=== PATIENT | female | born 1955 | race Caucasian/White ===

== ENCOUNTER 2017-12-15 15:25 | Inpatient (IN) | payer BC, OTHER ==
--- NOTE | 2017-12-15 18:04 | RAD ---
HISTORY: Left knee pain after injury COMPARISONS: None VIEWS: 2, Frontal and lateral views of the left knee FINDINGS: Evaluation is limited by positioning. BONE DENSITY: Normal. BONES: There is a depressed fracture of the lateral tibial plateau. JOINTS: There is lipohemarthrosis. ALIGNMENT: There is no dislocation. SOFT TISSUES: Unremarkable. OTHER FINDINGS: None. IMPRESSION: LATERAL TIBIAL PLATEAU FRACTURE
[2017-12-15] MEDS ORDERED: oxyCODONE/Acetamin 5/325 MG* TAB PO ONE ×2 (21:26)
[2017-12-15] MEDS ORDERED: Ondansetron INJ* 2 MG/ML VIAL IV PRN (23:44)
[2017-12-15] MEDS ORDERED: fentaNYL* 50 MCG/ML 2 ML VIAL (100 MCG VIAL) IV SLOW PU PRN (23:44)
[2017-12-15] MEDS ORDERED: Acetaminophen TAB* 325 MG PO PRN (23:44)
[2017-12-15] MEDS ORDERED: CMCS: Melatonin (NF) 3 MG TAB PO PRN (23:44)
[2017-12-15] MEDS ORDERED: traMADol TAB* 50 MG PO PRN (23:44)
--- NOTE | 2017-12-15 23:48 | HP ---
H&P (Free Text) History and Physical: PCP: Date/Time: CC: HPI: PMedHx PSurgHx SocHx: FamHx: ROS: as above, otherwise reviewed and all were negative vitals: Constitutional: NAD, normally developed, well-nourished HEENM: atraumatic; sclera/conjunctiva: ; hearing: ; oropharynx: Neck: soft tissue: ; thyroid: Pulmonary: clear to auscultation bilaterally, good aeration, no accessory muscle use CV: RR/RR, normal S1S2, no carotid bruit, no jugular venous distention, 2+ B DP/ PT, no edema Abdominal: soft, non-distended, non-tender, no rebound/guarding/rigidity, normoactive bowel sounds, no hepatosplenomegaly or masses, no costovertebral angle tenderness Musculoskeletal: general: ; gait: Integumental: Psychiatric orientation: affect: mood: eye contact: content: memory: responses: insight: Testing: ECG, personally reviewed: CXR, personally reviewed: Impression: DIAGNOSIS & PLAN Primary Secondary Admission Rational: DVTp: Code Status: HCP:
--- NOTE | 2017-12-15 23:49 | HP ---
H&P (Free Text) History and Physical: PCP: Mark Barone MD Date/Time: 12/15/2017 2340 CC: L leg pain after being charged by a sow HPI: Mrs Burrows is a very pleasant 62YO super morbidly obese female without medical diagnoses, no history of surgery, and on no chronic medications who was loading pigs into a trailer when the sow in front of her turned around and decided not to board. She was unable to get out of the way and was struck in the LLE with immediate onset of severe pain and an inability to bear weight for which she presents. XRY has confirmed a L tibial plateau fracture. Her pain has been unable to be adequately controlled with medications and a L knee immobilizer in order to safely discharge. 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 Mrs Burrows reports seeing her PCP ~1 week ago and receiving a clean bill of health. 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; full code status FamHx: Mother: alive at 84, early dementia; Father: alive at 87, CVA, valve replacement & needing another, Waldenstrom's, small cell lung CA ROS: as above, otherwise reviewed and all were negative vitals: Vital Signs Temp 38.1 C 12/16/17 01:27 Pulse 87 12/16/17 01:27 Resp 16 12/16/17 01:27 BP 158/69 12/16/17 01:27 Pulse Ox 96 12/16/17 01:27 Intake & Output 12/15/17 12/15/17 12/16/17 11:59 23:59 11:59 Weight 144.242 kg Constitutional: NAD, normally developed, super morbidly obese white female HEENM: atraumatic; sclera/conjunctiva: anicteric/clear; hearing: clinically intact; oropharynx: clear, mucosa moist Neck: soft tissue: non-tender; thyroid: normal Pulmonary: clear to auscultation bilaterally, good aeration, no accessory muscle use CV: RR/RR, normal S1S2, no carotid bruit, no jugular venous distention, 2+ B DP/ PT, no edema, L foot capillary refill <2 seconds Abdominal: soft, non-distended, non-tender, no rebound/guarding/rigidity, normoactive bowel sounds, no hepatosplenomegaly or masses, no costovertebral angle tenderness Musculoskeletal: general: L knee immobilizer; gait: currently non-ambulatory 2nd LLE pain Integumental: normal appearance and texture of exposed skin Psychiatric orientation: AA&O to PPS affect: calm mood: cooperative, pleasant eye contact: good content: reliable responses: timely insight: good Testing: Lab Results 12/16/17 12/16/17 12/16/17 Range/Units 00:53 00:53 00:53 WBC 10.9 H (3.5-10.8) 10^3/ul RBC 4.51 (4.0-5.4) 10^6/ul Hgb 13.2 (12.0-16.0) g/dl Hct 39 (35-47) % MCV 87 (80-97) fL MCH 29 (27-31) pg MCHC 34 (31-36) g/dl RDW 14 (10.5-15) % Plt Count 151 (150-450) 10^3/ul MPV 9 (7.4-10.4) um3 Neut % (Auto) 78.6 (38-83) % Lymph % (Auto) 14.1 L (25-47) % Wake % (Auto) 6.4 (1-9) % Eos % (Auto) 0.2 (0-6) % Baso % (Auto) 0.7 (0-2) % Absolute Neuts (auto) 8.6 H (1.5-7.7) 10^3/ul Absolute Lymphs (auto) 1.5 (1.0-4.8) 10^3/ul Absolute Monos (auto) 0.7 (0-0.8) 10^3/ul Absolute Eos (auto) 0 (0-0.6) 10^3/ul Absolute Basos (auto) 0.1 (0-0.2) 10^3/ul Absolute Nucleated RBC 0 10^3/ul Nucleated RBC % 0 INR (Anticoag Therapy) 0.90 (0.77-1.02) APTT 28.2 (26.0-36.3) seconds BUN 15 (6-24) mg/dL Creatinine 0.68 (0.51-0.95) mg/dL Est GFR ( Amer) 112.0 (>60) Est GFR (Non-Af Amer) 87.1 (>60) CXR, personally reviewed: IMPRESSION: LATERAL TIBIAL PLATEAU FRACTURE Impression: 62F with no medical issues presents with traumatic L lateral tibial plateau fracture DIAGNOSIS & PLAN Primary traumatic L lateral tibial plateau fracture : pain control : Malick Valdez MD orthopedic surgery consulted by ED : As there are no acute or chronic medical conditions nor chronic medications, Mrs Burrows has been admitted to the orthopedic service and the Hospitalist service will sign off. Should any acute medical issues arise, please consult. Secondary super morbid obesity : no acute issues Admission Rational: observation for orthopedic management of a L lateral tibial plateau FX DVTp: heparin SQ Code Status: full HCP:
[2017-12-16 01:03] LABS: ABS Basophils 0.1 10^3/ul (0-0.2); ABS Eosinophils 0 10^3/ul (0-0.6); ABS Lymphocytes 1.5 10^3/ul (1.0-4.8); ABS Monocytes 0.7 10^3/ul (0-0.8); ABS Neutrophils 8.6 10^3/ul (1.5-7.7); ABS Nucleated RBC 0 10^3/ul; Eosinophil % 0.2 % (0-6); Hematocrit 39 % (35-47); Hemoglobin 13.2 g/dl (12.0-16.0); Lymphocyte % 14.1 % (25-47); Mean Corpuscular HGB Conc 34 g/dl (31-36); Mean Corpuscular Hemoglobin 29 pg (27-31); Mean Corpuscular Volume 87 fL (80-97); Mean Platelet Volume 9 um3 (7.4-10.4); Nucleated Red Blood Cells % 0; Platelet Count 151 10^3/ul (150-450); Red Blood Count 4.51 10^6/ul (4.0-5.4); Red Cell Distribution Width 14 % (10.5-15); White Blood Count 10.9 10^3/ul (3.5-10.8)
[2017-12-16 01:17] LABS: EGFR Non-African American 87.1 (>60)
[2017-12-16 01:18] LABS: INR 0.9 (0.77-1.02)
[2017-12-16] MEDS: oxyCODONE TAB* 5 MG TAB PO PRN ×2 (04:04→08:11)
[2017-12-16] MEDS: Heparin VIAL(*) 5000 UNITS/ML VIAL (FIVE THOUSAND) SUBCUT SCH ×3 (05:50→21:18)
[2017-12-16] MEDS: Omeprazole CAP* 20 MG PO SCH (05:53)
[2017-12-16] MEDS: Docusate CAP* 100 MG PO SCH ×2 (08:11→20:24)
[2017-12-16] MEDS ORDERED: Influenza VAC *QUAD* 2017-18* 0.5 ML SYRINGE IM ONE (09:00)
--- NOTE | 2017-12-16 11:26 | RAD ---
INDICATION: Tibial plateau fracture. Femoral pain COMPARISON: Left knee same date TECHNIQUE: Multiple views were obtained. FINDINGS: There is no acute femoral fracture. There is osteophyte change about the knee with acute lateral tibial plateau fracture as described in a separate report. IMPRESSION: NO ACUTE FEMORAL FRACTURE.
[2017-12-16] MEDS ORDERED: Morphine INJ* 2 MG/ML 1 ML SYRINGE (TWO MG - NEW SYRINGE VERSION) ONE (11:35)
[2017-12-16] MEDS ORDERED: Morphine INJ* 4 MG/ML 1 ML CARPUJECT IV PRN (11:40)
[2017-12-16] MEDS ORDERED: Morphine INJ* 2 MG/ML 1 ML SYRINGE (TWO MG - NEW SYRINGE VERSION) IV PRN (11:40)
[2017-12-16] MEDS: oxyCODONE/Acetamin 5/325 MG* TAB PO PRN ×3 (12:13→20:23)
--- NOTE | 2017-12-16 12:21 | ED ---
Lidia Smith Julia, scribed for Ilir Barlow MD on 12/15/17 at 1904 . Lower Extremity - HPI Summary HPI Summary: This patient is a 62 year old F presenting to [facility] with a chief complaint of L knee pain since 15:15 immediately after a pig ran into her L knee while trying to get it onto a truck. The patient rates the pain 8/10 in severity. Symptoms aggravated by bearing weight and movement. Symptoms alleviated by nothing. - History of Current Complaint Chief Complaint: EDExtremityLower Stated Complaint: WEAKNESS Time Seen by Provider: 12/15/17 18:38 Hx Obtained From: Patient Mechanism Of Injury: Direct Blow Onset of Pain: Immediate Onset/Duration: Still Present Pain Intensity: 8 Pain Scale Used: 0-10 Numeric Timing: Constant Location: Is Discrete @ - L knee Associated Signs And Symptoms: Positive: Knee Pain Aggravating Factor(s): Movement, Weight Bearing - Allergies/Home Medications Allergies/Adverse Reactions: Allergies Allergy/AdvReac Type Severity Reaction Status Date / Time Albuterol Allergy Edema Verified 01/30/17 11:27 PMH/Surg Hx/FS Hx/Imm Hx Opthamlomology History: Denies: Hx Legally Blind EENT History: Denies: Hx Deafness Infectious Disease History: No Infectious Disease History: Denies: Traveled Outside the [place] in Last 30 Days - Family History Known Family History: Positive: Cardiac Disease, Diabetes - paternal, Other - skin CA - Social History Alcohol Use: None Substance Use Type: Reports: None Smoking Status (MU): Unknown if Ever Smoked Review of Systems Negative: Fever Positive: Other - L knee pain All Other Systems Reviewed And Are Negative: Yes Physical Exam - Summary Physical Exam Summary: Appearance: The patient is well-nourished in no acute distress and in no acute pain. Patient is morbidly obese. Skin: The skin is warm and dry and skin color reflects adequate perfusion. HEENT: The head is normocephalic and atraumatic. The pupils are equal and reactive. The conjunctivae are clear and without drainage. Nares are patent and without drainage. Mouth reveals moist mucous membranes and the throat is without erythema and exudate. The external ears are intact. The ear canals are patent and without drainage. The tympanic membranes are intact. Neck: the neck is supple with full range of motion and non-tender. There are no carotid bruits. There is no neck vein distension. Respiratory: Chest is non-tender. Lungs are clear to auscultation and breath sounds are symmetrical and equal. Cardiovascular: Heart is regular rate and rhythm. There is no murmur or rub auscultated. There is no peripheral edema and pulses are symmetrical and equal. Abdomen: The abdomen is soft and non-tender. There are normal bowel sounds heard in all four quadrants and there is no organomegaly palpated. Musculoskeletal: There is no back tenderness noted. L knee is tender to any ROM. There is good capillary refill. There is no peripheral edema or calf tenderness elicited. LLE neurovascular integrity is intact Neurological: Patient is alert and oriented to person, place and time. The patient has symmetrical motor strength in all four extremities. Cranial nerves are grossly intact. Deep tendon reflexes are symmetrical and equal in all four extremities. Psychiatric: The patient has an appropriate affect and does not exhibit any anxiety or depression. Triage Information Reviewed: Yes Vital Signs On Initial Exam: Initial Vitals Temp Pulse Resp BP Pulse Ox 97.5 F 82 16 162/76 97 12/15/17 15:39 12/15/17 15:39 12/15/17 15:39 12/15/17 15:39 12/15/17 15:39 Vital Signs Reviewed: Yes Diagnostics - Vital Signs Vital Signs Temp Pulse Resp BP Pulse Ox 12/15/17 17:44 98.0 F 76 16 161/65 99 12/15/17 15:39 97.5 F 82 16 162/76 97 - Laboratory Result Diagrams: 12/16/17 00:53 12/16/17 00:53 Lab Statement: Any lab studies that have been ordered have been reviewed, and results considered in the medical decision making process. - Radiology L knee XR Radiology Interpretation Completed By: Radiologist - LATERAL TIBIAL PLATEAU FRACTURE. ED Physician has reviewed this report. Lower Extremity Course/Dx - Course Course Of Treatment: Ms. Burrows was found to have sustained a lateral tibial plateau fracture. I spoke with Dr. Valdez who felt that immobilization, pain control F/U in the office tomorrow would suffice. We were able to get an immobilizer on her but even with pain medications she was not able to ambulate non weight bearing with crutches or a walker. She is morbidly obese and Dr. Portillo is admitting her for Dr. Valdez. - Diagnoses Provider Diagnoses: Tibial plateau fracture, left - Physician Notifications Discussed Care Of Patient With: Luz Valdez Time Discussed With Above Provider: 19:55 Instructed by Provider To: Other - patient should use immobilizer and follow up in office tomorrow Discharge - Discharge Plan Condition: Stable Disposition: HOME The documentation as recorded by the Lidia mooney Julia accurately reflects the service I personally performed and the decisions made by me, Ilir Barlow MD.
--- NOTE | 2017-12-16 12:43 | RAD ---
INDICATION: Traumatic tibial plateau fracture left knee. COMPARISON: Comparison is made with a prior x-ray study of the left knee from December 15, 2017. TECHNIQUE: Contiguous axial sections were obtained of the left knee. Images were reconstructed in the sagittal and coronal planes. FINDINGS: There is a comminuted depressed fracture of the anterior lateral tibial plateau. The fracture fragments are depressed up to 1.3 cm. The fracture extends through the region of the tibial spines. No other fractures are seen. There is a large lipohemarthrosis present. Incidental note is made of moderate osteoarthritic change in the medial compartment. IMPRESSION: 1. DEPRESSED FRACTURE OF THE LATERAL TIBIAL PLATEAU. 2. LIPOHEMARTHROSIS.
--- NOTE | 2017-12-16 19:56 | CONS ---
ORTHOPEDIC CONSULTATION NOTE: DATE OF CONSULT: 12/16/17 Thank you for this orthopedic consultation. CHIEF COMPLAINT: Left knee pain. HISTORY OF PRESENT ILLNESS: Ms. Burrwos is a 62-year-old morbidly obese female who was hit by a pig on 12/15/17, injuring her left knee. She had immediate 10/ 10 pain in the left leg. She is unable to bear weight without pain. She came to [facility] and was diagnosed with a lateral tibial plateau fracture. My recommendation was for the patient to follow up as an outpatient in clinic to discuss operative versus nonoperative treatment plan. The patient was unable to leave the emergency room due to inability to ambulate and inadequate pain control. She has been admitted for these things. I am consulting on her fracture care. PAST MEDICAL HISTORY: Basal cell cancer, morbid obesity. PAST SURGICAL HISTORY: None. FAMILY HISTORY: Maternal - dementia. Paternal - CVA and cardiac valve disorder , lung cancer. SOCIAL HISTORY: The patient lives with her . 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 Normally an independent ambulator. Minimal alcohol use. No tobacco or recreational drug use. REVIEW OF SYSTEMS: Fourteen systems were reviewed with the patient. Positive for left femur pain, left knee pain. Negative for fevers, chills, chest pain, shortness of breath, nausea, vomiting, headache or dizziness. Otherwise, the patient reports review of systems is negative or not relevant. PHYSICAL EXAMINATION: Vitals: Temperature 99.9, heart rate 80, blood pressure 140/47. General: The patient is a morbidly obese female, in no apparent distress, alert and oriented x3, pleasant mood and appropriate affect. Gait is not assessed. HEENT: Atraumatic, normocephalic. Pupils equal and reactive to light. Chest: Unlabored breathing. Bilateral upper extremities, no tenderness to palpation. Forward flexion to 120 degrees, no instability, 5/5 yarn comber strength , 2+ palpable radial pulses. Right lower extremity: The patient's skin is intact. No abrasions or open wounds. She can flex the hip and knee without pain. Distally neurovascularly intact. Left lower extremity, the patient has swelling in the distal thigh with palpable hematoma along the distal quadriceps region. Tenderness to palpation and swelling along the knee and proximal tibia. It is hard to assess the swelling due to the patient's morbid obesity. She has a soft calf that is compressible with minimal pain. Any flexion of the knee causes extreme pain. Distally, she has 5/5 ankle dorsiflexion and plantarflexion. Full sensation to light touch in all nerve distributions and 2 + palpable DP pulse. DIAGNOSTIC STUDIES/LAB DATA: White blood cell 10.9, hematocrit 39, platelets 151,000. INR is 0.9. Chemistry: BUN and creatinine 15 and 0.68. Radiographs: There are knee films that show a depression type fracture of the lateral tibial plateau. No additional films. No films of the femur. ASSESSMENT AND PLAN: Ms. Burrows is a 62-year-old female, who had an injury from a pig yesterday with resulting left displaced lateral tibial plateau fracture, likely depression type. The patient has a significant hematoma in the left distal thigh and I will order some femur films. I will also order a CT scan for better visualization of this tibial plateau fracture. The patient and I had previously discussed operative and nonoperative treatment options. She would like to avoid surgery if at all possible. After reviewing just the plain films, I feel she may need surgical intervention. The patient should be nonweightbearing, left lower extremity. She should have physical therapy work with her on ambulation today with rolling walker. If her pain is controlled, then she is able to be discharged to home. She should follow up as an outpatient this week to further discuss her CT and treatment options. She should have ice to the knee at all times. She should have elevation of that leg. She should have the knee immobilizer on when out of bed. [id number]/[facility] #: [id number] CHRISTINA
--- NOTE | 2017-12-17 01:45 | CONS ---
CONSULTATION REPORT: DATE OF CONSULT: 12/16/17 REASON FOR CONSULTATION: Left tibial plateau fracture. 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 yesterday, 12/15/17, sustained a left knee injury on her farm. The patient was loading pigs into a trailer when the sow in front of her turned around and moved towards her. The patient reports that she was struck in the left knee. The patient acknowledged that she was likely hit about the lateral aspect of the knee when I asked regarding this. The patient did not fall and hit the ground, but she had an immediate onset of severe pain and inability to weight bear. The patient's eventually was able to bring her to [facility] Emergency Department last night, where x-rays diagnosed her with a left knee lateral tibial plateau fracture, displaced, depression type. The patient was given the diagnosis and told that treatment could be elective, as an outpatient. However, for functional reasons and those of pain control, the patient was not able to go home from the emergency department. She was, therefore, admitted to the hospitalist service for pain control and functional support. The patient describes no left knee pain history prior to this accident yesterday. The patient reports no other injury sustained with that accident yesterday. The patient states that she is comfortable and not in pain as long as she does not move at all the left lower extremity. If that left lower extremity moves, she has significant left knee pain. PAST MEDICAL HISTORY: Obesity with BMI of 54.6. PAST SURGICAL HISTORY: Excision of basal cell carcinoma from chin. MEDICATIONS: None. ALLERGIES: ALBUTEROL (lip swelling). 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 The patient reports a remote history of smoking minimally when she was much younger in the distant past. The patient drinks minimally, 1 to 2 glasses of wine twice monthly. No recreational drugs. Lives with her . REVIEW OF SYSTEMS: No headache, nausea or vomiting, chest pain, heart palpitations, shortness of breath. No abdominal pain. No numbness and tingling of left lower extremity. No other joint pain. PHYSICAL EXAM: Vital Signs: At 3:35 p.m. on 12/16/17: Temperature 98.2 degrees Fahrenheit, pulse 71, blood pressure 146/66, respiratory rate 16, O2 sat 95% on room air. No acute distress, alert and oriented, appropriate mood and affect, appropriate dress and hygiene, well coordinated bilateral upper and lower extremities. I did not assess gait as the patient was sitting with her legs up in a chair in her hospital room. Knee immobilizer in place about the left lower extremity. No significant soft tissue swelling about the left knee, although difficult to discern level of soft tissue swelling given the obesity about the knee. No ecchymosis. No skin defects. Positive tenderness to palpation of the lateral tibial plateau. Neurovascularly intact distally. The skin of the lateral lower leg wrinkled nicely as well as the skin about the lateral knee. DIAGNOSTIC STUDIES/LAB DATA: On 12/16/17, today, white blood cell count 10.9, hematocrit 39, INR 0.90, creatinine 0.68. Neutrophil count 78.6% with a white count of 10.9. Imaging: I reviewed the CT scan of the left knee from today, 12/16/17 of the left knee. It reveals a lateral tibial plateau fracture. The amount of depression is significant. I measured it to be approximately 10 mm. Axillary slices appeared indicate that it is more the anterior than the posterior aspect of the lateral tibial plateau that is affected. Radiologist did not reference a split fracture. However, to my eye, I see a split component to the fracture, with the fracture line exceeding approximately 3.8 cm distal to the joint line. There are visible osteophytes in all 3 compartments of the knee, so certainly some level of arthritic change is present. X-rays were also reviewed from 12/15/17. They show clear depression of the lateral tibial plateau of approximately 1 cm. ASSESSMENT: Lateral tibial plateau fracture, displaced, Schatzker type II. PLAN: 1. The patient's potentially complicating factors include her morbid obesity and her preexisting knee osteoarthritis. 2. I mapped out the fracture in a diagram to the patient and her family. We discussed nonoperative and operative treatments for this injury. Given the extensive depression, despite the patient's preexisting arthritis, for the stability of the knee and to slow osteoarthritic change, I recommended open reduction internal fixation surgery. 3. I detailed how I typically use cancellous bone allograft for this procedure. The patient understood. 4. I told the patient that generally soft tissue swelling accompanies this injury such that surgery is performed within 24 hours or at a week or week and a half post- injury. This is not always however the case. The patient has nice wrinkling of her skin currently. I told her that based on OR availability , I might be able to do the case in the next several days, perhaps on Saturday , 12/18/17, so that the patient would not have to go to a rehabilitation facility prior to surgery. She does not feel comfortable going home with her knee as it is currently. It is both functionally and pain bui. 5. I told the patient that she must have that knee and lower extremity elevated at all times under 3 pillows and that she should have ice packs on the knee. This is to minimize soft tissue swelling to make surgery in next several days feasible to prevent any difficulties with infection or wound healing in the future perioperatively. 6. Because of the elevated slightly white count and the left shift of neutrophils, I am going to place an order for a urinalysis and culture. 7. I will request that hospitalist perform a preoperative optimization, clearance on the patient to make sure no additional testing is required such as a cardiac evaluation. [id number]/[facility] #: [id number] CHRISTINA
[2017-12-17] MEDS: Omeprazole CAP* 20 MG PO SCH (06:27)
[2017-12-17] MEDS: oxyCODONE/Acetamin 5/325 MG* TAB PO PRN ×5 (06:28→23:46)
[2017-12-17] MEDS: Heparin VIAL(*) 5000 UNITS/ML VIAL (FIVE THOUSAND) SUBCUT SCH ×3 (06:28→20:59)
[2017-12-17] MEDS: Docusate CAP* 100 MG PO SCH ×2 (08:05→20:59)
[2017-12-17 10:56] LABS: Urine Appearance Clear; Urine Blood 1+ (Negative); Urine Color Straw; Urine Ketones Negative (Negative); Urine Protein Negative (Negative); Urine Specific Gravity 1.005 (1.010-1.030); Urine Urobilinogen Negative (Negative)
--- NOTE | 2017-12-17 11:03 | PN ---
Progress Note - Progress Note Date of Service: 12/17/17 SOAP: Subjective: []Patient seen at bedside. Her pain is well controlled at rest, aggravated by movement. Denies dizziness, CP, SOB. Objective: []General: Well appearing, NAD RLE: Immobilizer in place. Leg propped on pillows, ice bags in place. DF/PF intact. 2+ DP. Sensation intact distally. Brisk capillary refill distally. Vital Signs Temp 98.0 F 12/17/17 07:43 Pulse 72 12/17/17 07:43 Resp 16 12/17/17 09:05 BP 152/50 12/17/17 07:43 Pulse Ox 93 12/17/17 07:43 Intake & Output 12/16/17 12/17/17 12/17/17 18:59 06:59 18:59 Intake Total 1500 Output Total 800 400 Balance -800 1100 Intake: Oral 1500 Output: Urine 800 400 Other: # Bowel Movements 0 Laboratory Last Values WBC 10.9 10^3/ul (3.5-10.8) H 12/16/17 00:53 RBC 4.51 10^6/ul (4.0-5.4) 12/16/17 00:53 Hgb 13.2 g/dl (12.0-16.0) 12/16/17 00:53 Hct 39 % (35-47) 12/16/17 00:53 MCV 87 fL (80-97) 12/16/17 00:53 MCH 29 pg (27-31) 12/16/17 00:53 MCHC 34 g/dl (31-36) 12/16/17 00:53 RDW 14 % (10.5-15) 12/16/17 00:53 Plt Count 151 10^3/ul (150-450) 12/16/17 00:53 MPV 9 um3 (7.4-10.4) 12/16/17 00:53 Neut % (Auto) 78.6 % (38-83) 12/16/17 00:53 Lymph % (Auto) 14.1 % (25-47) L 12/16/17 00:53 [place] % (Auto) 6.4 % (1-9) 12/16/17 00:53 Eos % (Auto) 0.2 % (0-6) 12/16/17 00:53 Baso % (Auto) 0.7 % (0-2) 12/16/17 00:53 Absolute Neuts (auto) 8.6 10^3/ul (1.5-7.7) H 12/16/17 00:53 Absolute Lymphs (auto) 1.5 10^3/ul (1.0-4.8) 12/16/17 00:53 Absolute Monos (auto) 0.7 10^3/ul (0-0.8) 12/16/17 00:53 Absolute Eos (auto) 0 10^3/ul (0-0.6) 12/16/17 00:53 Absolute Basos (auto) 0.1 10^3/ul (0-0.2) 12/16/17 00:53 Absolute Nucleated RBC 0 10^3/ul 12/16/17 00:53 Nucleated RBC % 0 12/16/17 00:53 INR (Anticoag Therapy) 0.90 (0.77-1.02) 12/16/17 00:53 APTT 28.2 seconds (26.0-36.3) 12/16/17 00:53 BUN 15 mg/dL (6-24) 12/16/17 00:53 Creatinine 0.68 mg/dL (0.51-0.95) 12/16/17 00:53 Est GFR ( Amer) 112.0 (>60) 12/16/17 00:53 Est GFR (Non-Af Amer) 87.1 (>60) 12/16/17 00:53 Urine Color Straw 12/17/17 10:05 Urine Appearance Clear 12/17/17 10:05 Urine pH 6.0 (5-9) 12/17/17 10:05 Ur Specific [place] 1.005 (1.010-1.030) L 12/17/17 10:05 Urine Protein Negative (Negative) 12/17/17 10:05 Urine Ketones Negative (Negative) 12/17/17 10:05 Urine Blood 1+ (Negative) H 12/17/17 10:05 Urine Nitrate Negative (Negative) 12/17/17 10:05 Urine Bilirubin Negative (Negative) 12/17/17 10:05 Urine Urobilinogen Negative (Negative) 12/17/17 10:05 Ur Leukocyte Esterase Negative (Negative) 12/17/17 10:05 Urine WBC (Auto) Trace(0-5/hpf) (Absent) 12/17/17 10:05 Urine RBC (Auto) Trace(0-2/hpf) (Absent) 12/17/17 10:05 Ur Squamous Epith Cells Present (Absent) H 12/17/17 10:05 Urine Bacteria 1+ (Absent) H 12/17/17 10:05 Urine Glucose Negative (Negative) 12/17/17 10:05 Assessment: []left tibial plateau fracture Plan: []NWB RLE propped on 3 pillows at all times, Ice Likely to OR for ORIF with Dr Parrish 12/08/17
[2017-12-18] MEDS ORDERED: NS 0.9% 1000 ML* 1,000 ML IV ONE (03:30)
[2017-12-18 05:15] LABS: ABS Basophils 0.1 10^3/ul (0-0.2); ABS Eosinophils 0.3 10^3/ul (0-0.6); ABS Lymphocytes 1.8 10^3/ul (1.0-4.8); ABS Monocytes 0.5 10^3/ul (0-0.8); ABS Nucleated RBC 0 10^3/ul; Eosinophil % 4.7 % (0-6); Hematocrit 39 % (35-47); Lymphocyte % 31.9 % (25-47); Mean Corpuscular HGB Conc 34 g/dl (31-36); Mean Corpuscular Hemoglobin 30 pg (27-31); Mean Corpuscular Volume 88 fL (80-97); Mean Platelet Volume 9 um3 (7.4-10.4); Nucleated Red Blood Cells % 0; Platelet Count 105 10^3/ul (150-450); Red Blood Count 4.37 10^6/ul (4.0-5.4); Red Cell Distribution Width 14 % (10.5-15); White Blood Count 5.6 10^3/ul (3.5-10.8)
[2017-12-18] MEDS: NS 0.9% 1000 ML* 1,000 ML IV SCH ×2 (05:25→13:14)
[2017-12-18] MEDS: Omeprazole CAP* 20 MG PO SCH (05:34)
[2017-12-18] MEDS: oxyCODONE/Acetamin 5/325 MG* TAB PO PRN ×4 (05:34→21:44)
[2017-12-18] MEDS ORDERED: Bupivacaine 0.25% SDV* 30 ML ONE (06:57)
[2017-12-18] MEDS ORDERED: Bupivacaine 0.5% SDV PF* 10-30ML VIAL ONE (06:57)
[2017-12-18] MEDS ORDERED: EPINEPHRINE 1 MG/ML 1 ML VIAL ONE (06:57)
[2017-12-18] MEDS ORDERED: ceFAZolin 1 GM in Dextrose (*) 1 GM/50 ML BAG IVPB ONE (07:06)
[2017-12-18] MEDS ORDERED: ceFAZolin 2 GM PREMIX (*) 2 GM/50 ML BAG IVPB ONE (07:06)
[2017-12-18] MEDS ORDERED: Propofol* 10 MG/ML 20 ML BTL IV PUSH ONE (07:29)
[2017-12-18] MEDS ORDERED: Atracurium* 10 MG/ML 10 ML VIAL ONE (07:29)
[2017-12-18] MEDS ORDERED: fentaNYL* 50 MCG/ML 2 ML VIAL (100 MCG VIAL) ONE ×3 (07:29→11:49)
[2017-12-18] MEDS ORDERED: Midazolam* 1 MG/ML 2 ML VIAL (2 MG) ONE (07:34)
[2017-12-18] MEDS ORDERED: EPHEDrine (Pressors)* 50 MG/ML VIAL ONE (07:59)
[2017-12-18] MEDS ORDERED: Dexamethasone IV* 4 MG/ML 1 ML (4 MG) ONE (07:59)
[2017-12-18] MEDS ORDERED: fentaNYL* 50 MCG/ML 5 ML VIAL (250 MCG VIAL) ONE (08:17)
[2017-12-18] MEDS ORDERED: DiMENhydriNATE IV* 50 MG/ML VIAL IV PUSH PRN (09:57)
[2017-12-18] MEDS ORDERED: Ondansetron INJ* 2 MG/ML VIAL IV PRN (09:57)
[2017-12-18] MEDS ORDERED: fentaNYL* 50 MCG/ML 2 ML VIAL (100 MCG VIAL) IV PRN (09:57)
[2017-12-18] MEDS ORDERED: Naloxone* 0.4 MG/ML 1 ML VIAL IV PRN (09:57)
[2017-12-18] MEDS: Docusate CAP* 100 MG PO SCH ×2 (11:29→21:44)
--- NOTE | 2017-12-18 11:40 | RAD ---
INDICATION: Left tibial plateau fracture, trauma COMPARISONS: December 15, 2017 TECHNIQUE: Fluoroscopy was provided for a surgical procedure. Total fluoroscopy time is: 4 minutes, 41 seconds FINDINGS: Spot images demonstrate internal fixation of the proximal tibia. IMPRESSION: FLUOROSCOPY WAS PROVIDED FOR A SURGICAL PROCEDURE CPT II Codes: 6045F
[2017-12-18] MEDS ORDERED: HYDROmorphone INJ* 2 MG/ML CARPUJECT SYRINGE ONE (11:48)
[2017-12-18] MEDS: HYDROmorphone INJ* 1 MG/ML CARPUJECT SYRINGE IV PRN ×5 (11:51→12:11)
[2017-12-18] MEDS ORDERED: oxyCODONE/Acetamin 5/325 MG* TAB ONE (12:17)
[2017-12-18] MEDS ORDERED: Heparin VIAL(*) 5000 UNITS/ML VIAL (FIVE THOUSAND) SUBCUT SCH (14:00)
[2017-12-18] MEDS: ceFAZolin 1 GM* X 3 DOSES POST-OP Q8H IVPB SCH ×4 (15:32→23:19)
[2017-12-19] MEDS: oxyCODONE/Acetamin 5/325 MG* TAB PO PRN ×5 (03:57→20:52)
[2017-12-19] MEDS: ceFAZolin 1 GM* X 3 DOSES POST-OP Q8H IVPB SCH ×2 (06:11)
[2017-12-19] MEDS: Omeprazole CAP* 20 MG PO SCH (06:11)
[2017-12-19] MEDS: Docusate CAP* 100 MG PO SCH ×2 (08:14→20:52)
[2017-12-19] MEDS: Enoxaparin(*) 40 MG/0.4 ML SYR SUBCUT SCH (08:14)
[2017-12-19] MEDS ORDERED: Bisacodyl SUPP* 10 MG SUPP PR PRN (11:48)
--- NOTE | 2017-12-19 11:59 | PN ---
Progress Note - Progress Note Date of Service: 12/19/17 SOAP: Subjective: [] Patient seen at bedside. She feels well and pain is well controlled of her LLE. Denies leg numbness, dizziness, CP, SOB. Objective: [] Vital Signs Temp 97.8 F 12/19/17 11:17 Pulse 74 12/19/17 11:17 Resp 16 12/19/17 12:32 BP 134/51 12/19/17 11:17 Pulse Ox 98 12/19/17 11:17 Intake & Output 12/18/17 12/19/17 12/19/17 18:59 06:59 18:59 Intake Total 2620 2088 345 Output Total 870 1950 830 Balance 1750 138 -485 Intake: IV Fluids 2500 950 LR 1500 NS 1000 NS (0.9%) 950 IVPB 58 ABX - CEFAZOLIN 58 Oral 120 1080 345 Output: AMOS #1 120 50 30 Urine 100 800 Nett[place] 550 1800 Estimated Blood Loss 200 Other: # Bowel Movements 0 Laboratory Last Values WBC 5.6 10^3/ul (3.5-10.8) 12/18/17 04:48 RBC 4.37 10^6/ul (4.0-5.4) 12/18/17 04:48 Hgb 13.0 g/dl (12.0-16.0) 12/18/17 04:48 Hct 39 % (35-47) 12/18/17 04:48 MCV 88 fL (80-97) 12/18/17 04:48 MCH 30 pg (27-31) 12/18/17 04:48 MCHC 34 g/dl (31-36) 12/18/17 04:48 RDW 14 % (10.5-15) 12/18/17 04:48 Plt Count 105 10^3/ul (150-450) L 12/18/17 04:48 MPV 9 um3 (7.4-10.4) 12/18/17 04:48 Neut % (Auto) 52.9 % (38-83) 12/18/17 04:48 Lymph % (Auto) 31.9 % (25-47) 12/18/17 04:48 [place] % (Auto) 9.4 % (1-9) H 12/18/17 04:48 Eos % (Auto) 4.7 % (0-6) 12/18/17 04:48 Baso % (Auto) 1.1 % (0-2) 12/18/17 04:48 Absolute Neuts (auto) 3.0 10^3/ul (1.5-7.7) 12/18/17 04:48 Absolute Lymphs (auto) 1.8 10^3/ul (1.0-4.8) 12/18/17 04:48 Absolute Monos (auto) 0.5 10^3/ul (0-0.8) 12/18/17 04:48 Absolute Eos (auto) 0.3 10^3/ul (0-0.6) 12/18/17 04:48 Absolute Basos (auto) 0.1 10^3/ul (0-0.2) 12/18/17 04:48 Absolute Nucleated RBC 0 10^3/ul 12/18/17 04:48 Nucleated RBC % 0 12/18/17 04:48 INR (Anticoag Therapy) 0.90 (0.77-1.02) 12/16/17 00:53 APTT 28.2 seconds (26.0-36.3) 12/16/17 00:53 BUN 15 mg/dL (6-24) 12/16/17 00:53 Creatinine 0.68 mg/dL (0.51-0.95) 12/16/17 00:53 Est GFR ( Amer) 112.0 (>60) 12/16/17 00:53 Est GFR (Non-Af Amer) 87.1 (>60) 12/16/17 00:53 Urine Color Straw 12/17/17 10:05 Urine Appearance Clear 12/17/17 10:05 Urine pH 6.0 (5-9) 12/17/17 10:05 Ur Specific [place] 1.005 (1.010-1.030) L 12/17/17 10:05 Urine Protein Negative (Negative) 12/17/17 10:05 Urine Ketones Negative (Negative) 12/17/17 10:05 Urine Blood 1+ (Negative) H 12/17/17 10:05 Urine Nitrate Negative (Negative) 12/17/17 10:05 Urine Bilirubin Negative (Negative) 12/17/17 10:05 Urine Urobilinogen Negative (Negative) 12/17/17 10:05 Ur Leukocyte Esterase Negative (Negative) 12/17/17 10:05 Urine WBC (Auto) Trace(0-5/hpf) (Absent) 12/17/17 10:05 Urine RBC (Auto) Trace(0-2/hpf) (Absent) 12/17/17 10:05 Ur Squamous Epith Cells Present (Absent) H 12/17/17 10:05 Urine Bacteria 1+ (Absent) H 12/17/17 10:05 Urine Glucose Negative (Negative) 12/17/17 10:05 Blood Type A Positive 12/16/17 00:53 Antibody Screen Negative 12/16/17 00:53 General: Well appearing, NAD LLE: Immobilizer in place. DF/PF intact. DP 2+. Sensation intact distally BL LE: Calves supple and nontender without erythema, edema or palpable cords. Assessment: [POD 1 s/p ORIF L tibial plateau Plan: []Drain to be left in until 12/19 Change dressing 12/19 Immobilizer at all times CPM machine and PT to start 12/19
[2017-12-19] MEDS: Magnesium Hydroxide LIQ* 30 ML UDC PO PRN ×2 (12:32→20:52)
[2017-12-20] MEDS: Omeprazole CAP* 20 MG PO SCH (05:34)
[2017-12-20] MEDS: oxyCODONE/Acetamin 5/325 MG* TAB PO PRN ×2 (05:34→10:54)
[2017-12-20] MEDS: Docusate CAP* 100 MG PO SCH (08:37)
[2017-12-20] MEDS: Enoxaparin(*) 40 MG/0.4 ML SYR SUBCUT SCH (08:37)
--- NOTE | 2017-12-20 11:48 | PN ---
Progress Note - Progress Note Date of Service: 12/20/17 SOAP: Subjective: 62 y/o female s/p fall with tib plat fx, s/p ORIF 12/[address] Parrish, uncomplicated. Patient overall feeling well, resting in bed comfrotably, concerned about NWB status. VSS afebrile overnight. Objective: General Well appearing, NAD AO, resting comfortably in bed MSK- Dressing taken down, incision c/d/i, AMOS drain removed, intact with cut between holes, tolerated well, redressed. + DFPF b/l, sensation grossly intact , PT 2+ b/l. mild edema b/l LE, neg homans b/l. Vital Signs Temp 98.9 F 12/20/17 11:17 Pulse 80 12/20/17 11:17 Resp 16 12/20/17 11:17 BP 150/71 12/20/17 11:17 Pulse Ox 93 12/20/17 11:17 Intake & Output 12/19/17 12/20/17 12/20/17 18:59 06:59 18:59 Intake Total 345 260 250 Output Total 830 1075 200 Balance -485 -815 50 Intake: Oral 345 260 250 Output: AMOS #1 30 50 Urine 800 1025 200 Other: Date of Last Bowel 12/20/17 Movement # Bowel Movements 1 Estimated Stool Amount Small Large Assessment: Stable 62 y/o female s/p fall with tib plat fx, s/p ORIF 12/[address] Parrish, uncomplicated. Plan: - D/C to [facility] today - DVT prophylaxis- lovenox - NWB- able to toe touch fro transfer with immobilizer locked - PT- use CPM machine for PROM, begin maximum speed and ROM, begin at 0-30. PT for PROM daily. - F/U with Dr. Parrish within 10 days Active Medications Generic Name Dose Route Start Last Admin Trade Name Freq PRN Reason Stop Dose Admin Acetaminophen 650 mg 12/15/17 23:44 12/16/17 01:23 Tylenol Tab* PO 650 mg Q6H PRN Administration FEVER/PAIN Bisacodyl 10 mg 12/19/17 11:48 Dulcolax Supp* MI DAILY PRN CONSTIPATION Docusate Sodium 200 mg 12/16/17 09:00 12/20/17 08:37 Colace Cap* PO 200 mg BID CHARISMA Administration Enoxaparin Sodium 40 mg 12/19/17 09:00 12/20/17 08:37 Lovenox(*) SUBCUT 40 mg DAILY CHARISMA Administration Fentanyl Citrate 25 mcg 12/15/17 23:44 Fentanyl* IV SLOW PU Q2H PRN PAIN Sodium Chloride 1,000 mls @ 125 mls/hr 12/18/17 03:30 12/18/17 13:14 Ns 0.9% 1000 Ml* IV 125 mls/hr PER RATE CHARISMA Administration Magnesium Hydroxide 30 ml 12/19/17 11:49 12/19/17 20:52 Milk Of Magnesia Liq* PO 30 ml BID PRN Administration CONSTIPATION Melatonin 3 mg 12/15/17 23:44 Melatonin (Nf) PO BEDTIME PRN Sleep Protocol Morphine Sulfate 2 mg 12/16/17 11:40 Morphine Inj (Syringe)* IV Q2H PRN PAIN - BREAKTHROUGH Morphine Sulfate 4 mg 12/16/17 11:40 12/17/17 20:08 Morphine Inj (Syringe)* IV 4 mg Q4H PRN Administration PAIN - SEVERE Omeprazole 20 mg 12/16/17 06:00 12/20/17 05:34 Prilosec Cap* PO 20 mg DAILY@0600 CHARISMA Administration Ondansetron HCl 4 mg 12/15/17 23:44 Zofran Inj* IV Q6H PRN NAUSEA Oxycodone HCl 5 mg 12/15/17 23:44 12/16/17 08:11 Roxycodone Tab* PO 5 mg Q4H PRN Administration PAIN Oxycodone/Acetaminophen 2 tab 12/16/17 11:41 12/20/17 10:54 Percocet 5/325 Tab* PO 2 tab Q4H PRN Administration PAIN - MODERATE Tramadol HCl 50 mg 12/15/17 23:44 Ultram* PO Q6H PRN PAIN
[2017-12-20 11:50] VITALS: BP 150/71
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
--- NOTE | 2017-12-23 04:03 | OP ---
DATE OF OPERATION: 12/18/17 - ROOM #[id number] DATE OF : 51 SURGEON: Luis Parrish MD DOG OR ANIMAL SITTER: KISHAN Raphael. A physician assistant technician was required for the length of the procedure, for positioning, retraction, assistance with instrumentation and closure. ANESTHESIOLOGIST: Chetan Chavarria MD PRE-OP DIAGNOSIS: Left lateral tibial plateau fracture, displaced. POST-OP DIAGNOSIS: Left lateral tibial plateau fracture, displaced. OPERATIVE PROCEDURE: Open reduction internal fixation left lateral tibial plateau fracture. IV FLUIDS: 2500 cc. URINE OUTPUT: 550 cc. TOURNIQUET TIME: 120 minutes at 300 mmHg. ANTIBIOTICS: Ancef 3 g IV. ESTIMATED BLOOD LOSS: Less than 200 cc. SPECIMENS: None. IMPLANTS: Lateral tibial plateau plate, Synthes; nonlocking and locking screws. Cancellous bone allograft chips, proximally of 4 containers of 5 cc. A DBX 1 container approximately 2.5 cc. 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 See my consultation note for full details of the accident. I saw the patient in the evening of 12/16/17. I had assessed the x-ray and CT. Each showed a depression of the left lateral tibial plateau of 10 to 12 mm of a large component to the lateral tibial plateau. Closer assessment of the CT scan revealed that there was also a shallow, thin split component to the fracture, most lateral making this more of a Schatzker 2 rather than a Schatzker 3. The patient and I discussed risks and benefits of nonoperative and operative treatment for this injury. We discussed the likelihood of knee osteoarthritis with and without the surgery. We discussed the long timeline of limited weightbearing and the long timeline of recovery for this injury whether treated nonoperatively or operatively, which is often times a surprise to patients. When the patient had decided on surgery, we spoked about risks and potential complications of surgery including bleeding, infection, nerve or blood vessel injury, knee pain, osteoarthritis, stiffness, hardware failure, need for removal of hardware, need for knee arthroplasty surgery. We also spoke about the need for the use of a cancellous allograft bone chips intraoperatively as well as bone matrix. The patient verbally consented to the use of cancellous bone allograft. The patient on physical exam had nice wrinkling of her skin. She was only 1 day from injury. We discussed timing of surgery, immediately or delayed. The patient did not think she could go home and that she would require to go to rehabilitation center. The patient's strong preference was to avoid rehab before and after surgery. Therefore, I decided that I would be willing to do the surgery within the next several days and I rescheduled some surgical cases to do so. We elevated the patient's left lower extremity under pillows and iced her knee at all times to minimize swelling to make surgery safe. An advantage of the patient's obesity is that there is significant skin wrinkling and I was not as concerned about soft tissue swelling and wound healing difficulties within the first 3 days after injury. The patient elevated and iced the left lower extremity and had a nice wrinkling of the skin about the left knee the morning of surgery, so we decided to go forward with it. DESCRIPTION OF PROCEDURE: Preoperatively, the patient signed a written consent. Operative extremity was marked in preoperative holding. The patient was taken back to the operating room and placed supine on the operating room table. The patient was sedated and intubated. A left proximal thigh tourniquet was placed. A large blanket bump under the left thigh was placed such that the knee was positioned straight anteriorly. C-arm was positioned on the contralateral side of the operating room table. The left lower extremity was prepped and draped. Bone film device had been placed under the left lower extremity, left lower leg. Surgical time-out was performed. Esmarch was applied and tourniquet was elevated to 300 mmHg. A standard anterolateral skin incision approach was made. I switched knives and continued my dissection with a deep knife and scissors down to the fascia of the anterior lower leg and muscular compartment of the iliotibial band. I placed retractors. I next placed an incision of the fascia layer. This split the iliotibial band, I ran through Gerdy's tubercle and then ran, proximally 1 to 1.5 cm lateral to the anterior tibial crest. Distally, I pulled the muscle of the anterior compartment away from the tibia using a Burnette elevator. Using a knife, I dissected fascia anteriorly and posteriorly off Gerdy's tubercle. Retractors were placed retracting the iliotibial band both anteriorly and posteriorly. I exposed the lateral tibial plateau. The lateral tibial plateau split, which was noted to be very thin on the CT, was not especially mobile or appreciable visually when I entered. Because of its thin size, I decided preoperatively to make a window, and use an impactor to elevate the significant deformity of the fracture, the depression. I therefore made my bony window distal to the depression above the proximal lateral tibia. I made the window by making drill holes and using an osteotome. Using C-arm imaging, taking multiple AP and lateral views of the proximal tibia , I used an impactor to impact and mobilize superiorly the impacted fracture of the lateral tibial plateau. This took more time than it generally does. Towards the end of my impacting, the impactor about the lateral most part of the lateral tibial plateau entered the knee joint. It was clear that this had happened only because the split about the lateral wall had mobilized, loose with the impacting work. I studied the quality of this proximal tibial bone, that split fragment and it was incredibly poor quality bone. I had placed a bone clamp about the medial and lateral tibia to close down the fracture site just prior to either impaction or my first screw placement and the clamp went right through that fragment laterally. With the impacted bone elevated, I next went in to place rafting screws. I decided to place these rafting screws outside of the plate because I wanted to obtain my definitive reduction and rafting prior to back packing the bone defect with graft. I was concerned that once I started back packing with graft that might cause the split parts of the fracture to open up and I had already determined that a clamp could not keep that bone reduced as the clamp would only damage the bone laterally. I therefore placed 2 rafting screws. These were 4.5 mm cannulated partially threaded screws. I placed 2 of them about the level from anterior to posterior of that defect, the impacted component to the fracture. I noted that 1 of the 2 heads went through especially poor quality bone, so I took it out and then applied a washer to obtain better fixation and reduction. I obtained C-arm imaging with these [address] I liked my reduction. I noted on AP imaging some defect of the lateral most rim of the lateral tibial plateau subchondral bone. This was not as visible to the touch or eye as it was appreciable by radiographic image. With my rafting screws in place, I then placed cancellous bone chips and DBX, mixed, through the cortical window into the bone defect. With that bone graft all applied, I then decided to arthroscope the knee to confirm the adequacy of my reduction. Next, I made an anterolateral knee arthroscopy portal, using standard technique. I started my knee scope in the patello-femoral compartment and noted osteophytes. The patient had a significant synovitis about the anterior compartment of the knee consistent with the knee with more arthritis. I had some difficulty entering the lateral compartment of the knee. I would have required some level of arthroscopic shaving of the anterior synovitis and any soft tissue about the lateral compartment. Lateral shaver was not immediately available, so I decided to not arthroscopically confirm the adequacy of my reduction. I had earlier made a sub-meniscal small arthrotomy about the anterior aspect of the lateral joint line. What I viewed through that window at this point was a reduced lateral tibial plateau, although visualization was poor through it. I next applied a lateral tibial tibial plateau locking plate. It was applied and locking screws were placed proximally and distally thorough it. I liked the position of the plate. I obtained AP, lateral and oblique images. They confirmed persistent adequacy of reduction of the bone and position of the hardware. I noted that defect along the lateral most rim of the that lateral tibial plateau, but no clear solution for that. Irrigation. I closed my sub-meniscal arthrotomy with #2 FiberWire stitches, closing the tissue to the superior aspect of that locking plate. I placed a AMOS drain in the anterior lower leg compartment. I closed the fascial layer with buried and superficial [id number] stitches using Vicryl 0 suture. Irrigation appeared closer to the subcutaneous tissue with buried simple stitches using Vicryl 2-0 suture. Closure of the skin with hunter. Xeroform, 4x4s, sterile Webril, Ayaz bandage from foot to thigh. Knee brace locked in extension. The patient was awakened and extubated. DISPOSITION: The patient was admitted postoperatively for pain control, work with physical therapy and anticoagulation. The patient was to receive IV and oral pain medications. The drain was to be removed on postoperative day 1 or 2 depending on drain output. The patient was to start physical therapy and CPM use on postoperative day 2. The patient could be seen by physical therapy on postoperative day #1 but would start passive range of motion on postoperative day #2. The patient was to get Lovenox 40 mg subcu daily x4 weeks postoperatively. The patient will follow up with me in clinic approximately 2 weeks postoperatively. The patient will be nonweightbearing left lower extremity. The patient will be encouraged immediately to start moving left knee passive range of motion to prevent stiffness. She will have a dressing change prior to discharge from the hospital. [id number]/CPS #: [id number] CHRISTINA
== END 2017-12-20 13:15 | DRG 313 ==
LOC: ED 15:25 → SSU 23:41 → OBSVTOIN 12-16 19:00
PROVIDERS: ADMIT Hospitalist; ATTEND Orthopaedic Surgery Adult Reconstructive Orthopaedic Surgery
PROC: 0QUH0KZ Supplement Left Tibia with Nonautologous Tissue Substitute, Open Approach (ICD-10-PCS; 2017-12-18)
PROC: 0QSH04Z Reposition Left Tibia with Internal Fixation Device, Open Approach (ICD-10-PCS; principal; 2017-12-18 07:30)
DX: S82.142A Displaced bicondylar fracture of left tibia, initial encounter for closed fracture (principal); Z68.43 Body mass index [BMI] 50.0-59.9, adult; E66.01 Morbid (severe) obesity due to excess calories; W17.89XA Other fall from one level to another, initial encounter; M25.762 Osteophyte, left knee; M65.862 Other synovitis and tenosynovitis, left lower leg; M17.12 Unilateral primary osteoarthritis, left knee; Z88.8 Allergy status to other drugs, medicaments and biological substances; Z82.49 Family history of ischemic heart disease and other diseases of the circulatory system; Z83.3 Family history of diabetes mellitus; Z85.828 Personal history of other malignant neoplasm of skin; Z82.3 Family history of stroke; Z80.1 Family history of malignant neoplasm of trachea, bronchus and lung; Z82.0 Family history of epilepsy and other diseases of the nervous system; Z87.891 Personal history of nicotine dependence; Z23 Encounter for immunization; Y92.73 Farm field as the place of occurrence of the external cause; Z72.89 Other problems related to lifestyle
CPT/HCPCS: 36415; 81003; 81015; 82565; 84520; 85025; 85610; 85730; 86850; 86900; 86901; 87086; 90686; 99285; A9270-GY; C1713; C1776; C9359; G0378; J0690; J1100; J1170; J1644; J1650; J2250; J2270; J2704; J3010